=== PATIENT | female | born 1970 | race Caucasian/White ===

== ENCOUNTER → 2018-07-06 | Emergency (ER) | payer MEDICARE, OTHER ==
[~2018-07-06] VITALS: Ht 165.1 cm; Wt 116.0 kg
[~2018-07-06] MED LIST: DIPH-423 PO; EPIN0.3P8 IM; FAMO20TA41 PO; HYDROcodone/acetaminophen 10/325mg tab PO ONE; PRED10TA PO; PRED5TAB PO
[2018-07-06 22:42] VITALS: BP 149/85
== END | disposition home or self-care (01) ==
LOC: ER 20:53
DX: S86.812A Strain of other muscle(s) and tendon(s) at lower leg level, left leg, initial encounter (principal); I48.91 Unspecified atrial fibrillation; E11.9 Type 2 diabetes mellitus without complications; E03.9 Hypothyroidism, unspecified; Z86.711 Personal history of pulmonary embolism; Z86.718 Personal history of other venous thrombosis and embolism; Z98.890 Other specified postprocedural states; Z88.0 Allergy status to penicillin; Z88.6 Allergy status to analgesic agent; Z88.1 Allergy status to other antibiotic agents; Z88.8 Allergy status to other drugs, medicaments and biological substances; Z79.899 Other long term (current) drug therapy; Z91.030 Bee allergy status; X58.XXXA Exposure to other specified factors, initial encounter; Y93.89 Activity, other specified; Y92.89 Other specified places as the place of occurrence of the external cause; Y99.8 Other external cause status
CPT/HCPCS: 93971; 99284

== ENCOUNTER 2022-07-10 22:16 | Emergency (ER) | payer MEDICARE, OTHER ==
[~2022-07-10] VITALS: Ht 162.6 cm; Wt 81.1 kg
[~2022-07-10 22:16] MED LIST changes: -HYDROcodone/acetaminophen 10/325mg tab PO ONE
--- NOTE | 2022-07-10 22:29 | NUR ---
SPOKE TO DR THORNTON CONCERNING PT'S SYMPTOMS BEING SUDDEN ONSET. PT STATED THIS IS NORMAL FOR HER MIGRAINES AND THIS IS NOT HER WORST MIGRAINE, A HEAD CT WILL NOT BE ORDERED AT THIS TIME.
[2022-07-11] MEDS: ketorolac trometh inj. 60 MG/2 ML VIAL IM ONE (00:02)
[2022-07-11] MEDS: diphenhydrAMINE 50 mg/ml inj IM ONE (00:02)
[2022-07-11] MEDS: proCHLORperazine 10 MG/2 ml inj IM ONE (00:02)
[2022-07-11 00:46] VITALS: BP 144/81
== END 2022-07-11 00:49 | disposition home or self-care (01) ==
LOC: ER 22:17
DX: R51.9 Headache, unspecified (principal); R11.2 Nausea with vomiting, unspecified; I48.91 Unspecified atrial fibrillation; E11.9 Type 2 diabetes mellitus without complications; E03.9 Hypothyroidism, unspecified; Z86.711 Personal history of pulmonary embolism; Z86.718 Personal history of other venous thrombosis and embolism; Z85.41 Personal history of malignant neoplasm of cervix uteri; Z98.890 Other specified postprocedural states; Z88.8 Allergy status to other drugs, medicaments and biological substances; Z88.1 Allergy status to other antibiotic agents; Z91.030 Bee allergy status; Z79.899 Other long term (current) drug therapy
CPT/HCPCS: 96372; 99284; J0780; J1200; J1885